=== PATIENT | female | born 1950 | race Caucasian/White ===

== ENCOUNTER 2021-11-20 12:58 | Emergency (ER) | payer MEDICARE ==
[~2021-11-20] VITALS: Ht 175.3 cm; Wt 136.6 kg
--- NOTE | 2021-11-20 13:18 | PHYS DOC ---
General Adult EDM: Chief Complaint: LOWER BACK PAIN OR INJURY HPI: HPI: Patient is a 70 year old female who presents with severe left-sided low back pain radiating into her gluteus for the last 4 days and now she is having the pain radiating down her leg. She states she took A Percocet this morning. She usually walks with a cane. Rates her pain a 10 out of 10 at this time. Denies loss of bowel bladder, numbness or tingling, weakness of the extremity, extremity swelling, fall, injury, your urinary symptoms, fever, headache, dizziness. Has a history of hypertension, diabetes, fibromyalgia, chronic headaches. Review of Systems: Review of Systems: Constitutional: Denies fever or chills. [] Eyes: Denies change in visual acuity. [] HENT: Denies nasal congestion or sore throat. [] Respiratory: Denies cough or shortness of breath. [] Cardiovascular: Denies chest pain or edema. [] GI: Denies abdominal pain, nausea, vomiting, bloody stools or diarrhea. [] : Denies dysuria. [] Musculoskeletal: + Left lower back pain or + left leg joint pain. [] Integument: Denies rash. [] Neurologic: Denies headache, focal weakness or sensory changes. [] Endocrine: Denies polyuria or polydipsia. [] Lymphatic: Denies swollen glands. [] Psychiatric: Denies depression or anxiety. [] Heart Score: C/O Chest Pain: No Current Medications: Current Medications Medications (Trade) Dose Ordered Sig/[facility] Start Time Stop Time Status Last Admin Dose Admin Fentanyl Citrate (Fentanyl 2ml Vial) 25 mcg 1X ONCE 11/20/21 13:15 11/20/21 13:16 UNV Lidocaine (Lidoderm) 1 patch 1X ONCE 11/20/21 13:15 11/20/21 13:16 UNV Methylprednisolone Sodium Succinate (SOLU-Medrol 125MG VIAL) 125 mg 1X ONCE 11/20/21 13:15 11/20/21 13:16 Orphenadrine Citrate (Norflex) 60 mg 1X ONCE 11/20/21 13:15 11/20/21 13:16 UNV Allergies: Allergies: Allergies Coded Allergies Type Severity Reaction Last Updated Verified No Known Drug Allergies 11/20/21 No Physical Exam: PE: Constitutional: Well developed, well nourished, no acute distress, non-toxic appearance. [] HENT: Normocephalic, atraumatic, bilateral external ears normal, oropharynx moist, no oral exudates, nose normal. [] Eyes: PERRLA, EOMI, conjunctiva normal, no discharge. [] Neck: Normal range of motion, no tenderness, supple, no stridor. [] Cardiovascular:Heart rate regular rhythm, no murmur [] Lungs & Thorax: Bilateral breath sounds clear to auscultation [] Abdomen: Bowel sounds normal, soft, no tenderness, no masses, no pulsatile masses. [] Skin: Warm, dry, no erythema, no rash. [] Back: Left lower back tenderness, no CVA tenderness. [] Extremities: No tenderness, no cyanosis, no clubbing, ROM intact, no edema. [] Neurologic: Alert and oriented X 3, normal motor function, normal sensory function, no focal deficits noted. [] Psychologic: Affect normal, judgement normal, mood normal. [] EKG: EKG: [] Radiology/Procedures: Radiology/Procedures: [] Impression: [facility] [address] [place] [address] IMAGING REPORT Signed PATIENT: YOBANY DILL ACCOUNT: [id number] : 1950 LOCATION: ER AGE: 70 SEX: F EXAM STATUS: PRE ER ORD. PHYSICIAN: ADAM CARIAS APRN REASON: severe back pain with sciatica PROCEDURE: CT LUMBAR SPINE WO CONTRAST CT LUMBAR SPINE WO History:Reason: severe back pain with sciatica / Spl. Instructions: / History: Technique: Noncontrast CT was performed of the lumbar spine. Multiplanar ayden nstructions were performed. Exposure: One or more of the following individualized dose reduction techniques were utilized for this examination: 1. Automated exposure control 2. Adjustment of the mA and/or kV according to patient size 3. Use of iterative reconstruction technique. Comparison: None Findings: Hepatic steatosis. Atheromatous plaque throughout the nonaneurysmal abdominal aorta and branch vessels. No acute fracture. Normal alignment. T12-L1: Posterior disc osteophyte complex. Vacuum disc phenomenon. No canal narrowing. Mild bilateral neuroforaminal narrowing. L1-L2: Posterior disc osteophyte complex. No canal narrowing. Mild facet arthropathy. Mild bilateral neuroforaminal narrowing. L2-L3: Small disc bulge. Moderate facet arthropathy. No canal narrowing. Mild right neuroforaminal narrowing. L3-L4: Posterior disc osteophyte complex. Vacuum disc phenomenon. Minimal canal narrowing. Subarticular recess narrowing. Moderate facet arthropathy. Moderate bilateral neuroforaminal narrowing. L4-L5: Left subarticular disc extrusion. Vacuum disc phenomenon. Moderate canal narrowing. Severe left subarticular recess narrowing. Probable displacement of the descending left L5 nerve root. Moderate left and mild right neuroforaminal narrowing. L5-S1: Small disc bulge. Moderate facet arthropathy. No canal narrowing. Mild left neuroforaminal narrowing. Impression: 1. Moderate lumbar spondylosis most prominent L4-5. 2. L4-5 disc bulge with left subarticular disc extrusion contributing to modera te canal narrowing and severe left subarticular recess narrowing with probable displacement and abutment of the descending left L5 nerve root. Correlate for radiculopathy. 3. Multilevel neuroforaminal narrowing most prominent left L4-5 and bilateral L3-L4. Electronically signed by: Kamron Ramos DO (11/20/2021 1:59 PM) [facility] DICTATED and SIGNED BY: KAMRON RAMOS DO DATE: 11/20/21 5255 Course & Med Decision Making: Course & Med Decision Making Pertinent Labs and Imaging studies reviewed. (See chart for details) See HPI. No saddle anesthesia. Speaks in full clear sentences. Alert and oriented x4. She can put weight on the left lower extremity which is painful to walk. There is some tenderness to the left lower back gluteal area. No extremity edema. No calf tenderness. No recent surgery. Afebrile. Skin pink warm and dry. Pedal pulse strong present. No focal weakness. Range of motion is limited due to pain. No CVA tenderness. Sensations intact. Patient is given Norflex, 50mcg fentanyl, lidocaine patch, Solu-Medrol IV. Patient was able to get up and ambulate to the bathroom using her cane with the nurse. Patient stated that it was easier to do so then it was previously. Patient is asking why the pain medication has not killed the pain totally. Patient is educated that the pain may not be taken away totally but that the hope is that it dulls it enough for her to get around. Patient will get a referral to Dr. Mak. She is given strict return precautions. [] Tomy Disclaimer: Tomy Disclaimer: This electronic medical record was generated, in whole or in part, using a voice recognition dictation system. Departure Departure Impression: Primary Impression: Low back pain Qualified Codes: M54.42 - Lumbago with sciatica, left side Disposition: HOME / SELF CARE / HOMELESS Condition: STABLE Referrals: PORFIRIO MAK MD Patient Instructions: Low Back Strain with [facility], Sciatica with [facility] Additional Instructions: Follow-up with your primary care doctor or as soon as possible. If you lose your bowel and bladder or have focal weakness cannot move the leg that is affected or the pain becomes so severe you cannot ambulate return to the emergency room. Take medication as prescribed. Remember some these medications will make you sleepy so you need to be very careful and slowly get up when standing and do not drive a vehicle while on these medications. Scripts Cyclobenzaprine Hcl (CYCLOBENZAPRINE HCL) 5 Mg Tablet 1 TAB PO TID PRN for MUSCLE PAIN, #30 TAB Prov: ADAM CARIAS APRN 11/20/21 Ibuprofen (IBUPROFEN) 600 Mg Tablet 600 MG PO PRN Q6HRS PRN for INFLAMMATION, #30 TAB DO NOT TAKE WITH OTHER NSAIDS Prov: ADAM CARIAS APRN 11/20/21 Hydrocodone Bit/Acetaminophen (HYDROCODONE-APAP 5-325 ) 1 Tab Tablet 1 TAB PO PRN Q6HRS PRN for PAIN, #15 TAB 0 Refills Prov: ADAM CARIAS [employer] 11/20/21 ADAM CARIAS APRN Nov 20, 2021 13:18
[2021-11-20] MEDS: ORPHENADRINE CITRATE 60 MG/2 ML VIAL. IV ONE (13:25)
[2021-11-20] MEDS: methylPREDNISolone SOD SUCC PF 125 MG/2 ML VIAL. IV ONE (13:25)
[2021-11-20] MEDS: LIDOCAINE (700MG/PATCH) PATCH. TD ONE (13:27)
[2021-11-20] MEDS: fentaNYL PF VIAL 100 MCG/2 ML VIAL IVP ONE ×2 (13:29→14:07)
--- NOTE | 2021-11-20 14:02 | RAD ---
CT LUMBAR SPINE WO History:Reason: severe back pain with sciatica / Spl. Instructions: / History: Technique: Noncontrast CT was performed of the lumbar spine. Multiplanar reconstructions were perform ed. Exposure: One or more of the following individualized dose reduction techniques were utilized for thi s examination: 1. Automated exposure control 2. Adjustment of the mA and/or kV according to patient size 3. Use of iterative reconstruction technique. Comparison: None Findings: Hepatic steatosis. Atheromatous plaque throughout the nonaneurysmal abdominal aorta and branch vessel s. No acute fracture. Normal alignment. T12-L1: Posterior disc osteophyte complex. Vacuum disc phenomenon. No canal narrowing. Mild bilatera l neuroforaminal narrowing. L1-L2: Posterior disc osteophyte complex. No canal narrowing. Mild facet arthropathy. Mild bilateral neuroforaminal narrowing. L2-L3: Small disc bulge. Moderate facet arthropathy. No canal narrowing. Mild right neuroforaminal n arrowing. L3-L4: Posterior disc osteophyte complex. Vacuum disc phenomenon. Minimal canal narrowing. Subarticu lar recess narrowing. Moderate facet arthropathy. Moderate bilateral neuroforaminal narrowing. L4-L5: Left subarticular disc extrusion. Vacuum disc phenomenon. Moderate canal narrowing. Severe le ft subarticular recess narrowing. Probable displacement of the descending left L5 nerve root. Moderat e left and mild right neuroforaminal narrowing. L5-S1: Small disc bulge. Moderate facet arthropathy. No canal narrowing. Mild left neuroforaminal na rrowing. Impression: 1. Moderate lumbar spondylosis most prominent L4-5. 2. L4-5 disc bulge with left subarticular disc extrusion contributing to moderate canal narrowing an d severe left subarticular recess narrowing with probable displacement and abutment of the descending left L5 nerve root. Correlate for radiculopathy. 3. Multilevel neuroforaminal narrowing most prominent left L4-5 and bilateral L3-L4. Electronically signed by: Kamron Ramos DO (11/20/2021 1:59 PM) [facility]
[2021-11-20 14:15] LABS: BILIRUBIN,URINE NEGATIVE (NEG); CLARITY,URINE CLEAR; COLOR,URINE YELLOW; NITRITE,URINE NEGATIVE (NEG); PH,URINE 5.5 (<5.0-8.0); PROTEIN,URINE 30 mg/dL (NEG-TRACE); UROBILINOGEN,URINE 0.2 mg/dL (0.2 mg/dL)
[2021-11-20 14:16] LABS: HYALINE CASTS, URINE MODERATE /HPF; RBC,URINE 0 /HPF (0-2)
[2021-11-20 14:17] LABS: BACTERIA,URINE FEW /HPF (0-FEW)
[2021-11-20] MEDS ORDERED: HYDR-2761 PO (14:41)
[2021-11-20] MEDS ORDERED: IBUP-1007 PO (14:41)
[2021-11-20] MEDS ORDERED: CYCL5TAB PO (14:41)
[2021-11-20 14:46] VITALS: BP 131/71
== END 2021-11-20 14:51 | disposition home or self-care (01) ==
LOC: ER 12:58
DX: M54.50 Low back pain, unspecified (principal); M79.605 Pain in left leg; M47.816 Spondylosis without myelopathy or radiculopathy, lumbar region
CPT/HCPCS: 72131; 81001; 87077; 87086; 87186; 96374; 96375; 99284; J2360; J2930; J3010

== ENCOUNTER → 2021-12-23 | Outpatient (CLI) | payer MEDICARE ==
[~2021-12-23] MED LIST: CRESTOR40 MG PO; CYCL5TAB PO; DULO60CA7 PO; HYDR-2761 PO; HYDR50TA9 PO; IBUP-1007 PO; LIDO700A21 TP; LOSA-73 PO; METF10007 PO
--- NOTE | 2021-12-23 15:52 | KCIC ---
EXAM: XR EYE_DETECT FOREIGN BODY 12/23/2021 2:10 PM CLINICAL INDICATION: Screening for MRI. History of metal wire lodged in the left eye. COMPARISON: None TECHNIQUE: 2 views of the orbits FINDINGS: No metallic foreign body in the orbits. IMPRESSION: No metallic foreign body in the orbits. Electronically signed by: Hermila Mitchell MD (12/23/2021 3:50 PM) [id number]
--- NOTE | 2021-12-24 09:28 | KCIC ---
EXAMINATION: Magnetic resonance imaging (MRI) of the lumbar spine without contrast 12/23/2021 2:10 PM HISTORY: Lumbar radiculopathy. Chronic low back pain in both buttocks. TECHNIQUE: Multiplanar multi-weighted MRI of the lumbar spine was performed without intravenous contr ast using the standard lumbar spine protocol. Contrast information: None administered. COMPARISON: CT lumbar spine 11/20/2021 FINDINGS: The alignment of the lumbar spine is normal. Vertebral bodies demonstrate normal signal intensity on all sequences. Moderate anterior marginal osteophytosis. There is moderate disc height loss at L3-L4 and mild disc height loss at L4-L5 with associated disc desiccation. Mild disc height loss at L1-L2. Disc desiccation. There are no compression fractures. The conus medullaris terminates at the level of L1. The distal spinal cord signal intensity is normal. Intervertebral disks have normal height an d signal intensity. There are no annular fissures identified. Limited views of the abdomen and pelvi s show no soft tissue abnormality. Tarlov cysts are identified at the S1-S2 vertebral level measuring up to 1.5 cm in craniocaudal dimension. The aorta is normal. T12-L1: There is a circumferential disc bulge. Mild facet arthropathy. Mild bilateral neuroforaminal stenosis. Mild spinal canal stenosis. L1-L2: There is a circumferential disc bulge asymmetric to the right with right far lateral disc prot rusion. Mild facet arthropathy. Mild bilateral neuroforaminal stenosis. Mild spinal canal stenosis. L2-L3: Mild disc bulge. Mild left and moderate right facet arthropathy. Mild bilateral neuroforaminal stenosis. Mild spinal canal stenosis. L3-L4: There is a posterior disc osteophyte complex. Mild to moderate facet arthropathy. Moderate zulay ateral neuroforaminal stenosis. Mild spinal canal stenosis, exacerbated by epidural lipomatosis. L4-L5: There is a circumferential disc bulge asymmetric to the left. There is a left subarticular rec ess disc extrusion with a cystic component which measures 1.1 x 0.9 x 1.2 cm. Moderate left and moder ate facet arthropathy. There is severe left lateral recess stenosis. Moderate spinal canal stenosis. Moderate bilateral neuroforaminal stenosis, left greater than right. L5-S1: Disc is normal in configuration. There is severe facet arthropathy. No significant neuroforami nal or spinal canal stenosis. IMPRESSION: Moderate degenerative changes of the lumbar spine as described in detail above. Findings are most sig nificant at L4-L5 with a left subarticular recess disc extrusion containing a cystic component measur ing 1.1 x 0.9 x 1.2 cm. Findings result in severe left lateral recess stenosis and moderate spinal ca nal stenosis. Electronically signed by: Annamarie Kramer MD (12/24/2021 9:26 AM) [facility]
== END ==
LOC: KCIC MRI 14:00
PROVIDERS: ATTEND Neurological Surgery
DX: M47.27 Other spondylosis with radiculopathy, lumbosacral region (principal); M47.25 Other spondylosis with radiculopathy, thoracolumbar region; M48.05 Spinal stenosis, thoracolumbar region; M51.15 Intervertebral disc disorders with radiculopathy, thoracolumbar region
CPT/HCPCS: 70030; 72148

== ENCOUNTER → 2021-12-27 | Outpatient (CLI) | payer MEDICARE ==
[~2021-12-27] MED LIST changes: +DEXAMETHASONE PRES.FREE 10 MG/ML VIAL. ONE; +IOHEXOL 180 MG/ML 10 ML VIAL. ONE
--- NOTE | 2021-12-27 12:58 | PDOC4 ---
Procedure Note: ICD 10 Code: ICD 10 Code: M51.16 M51.36 M48.06 Procedure Note: Patient was consented for lumbar epidural steroid injection with fluoroscopic guidance. Risks were discussed including but not limited to: Bleeding, infection, possibility of epidural hematoma and subsequent neurological compromise, dural puncture, headaches, spinal cord and/or nerve damage, side effects of steroid medication, and poor results regarding pain control. Patient understands and wished to proceed. Procedure is lumbar epidural steroid injection under local anesthetic using ster ile prep and drape at the L4-5 level using C-arm fluoroscopic guidance in both AP and lateral views medications injected is 20 mg dexamethasone +10mL preservative-free normal saline and 2 mL contrast- condition at discharge is stable patient tolerated procedure well had no complications. KARMA BOWERS MD Dec 27, 2021 12:58
--- NOTE | 2021-12-27 12:58 | PDOC1 ---
INITIAL PAIN CONSULT DATE OF SERVICE: DOS: DATE: 12/27/21 TIME: 12:52 CHIEF COMPLAINT: Chief Complaint: Low back and left lower extremity pain HISTORY OF PRESENT ILLNESS: 71-year-old female presents with history of pain low back left lower extremity for many years worse over the past 2 months or so without any specific injury or accident that she is aware for pain rating across the low back and the left lowe r extremity posterior gluteus posterior lateral thigh anterior thigh medial thigh medial lower leg lateral calf and medial calf with tingling in the leg as well patient reports again no specific injury or accident but is getting worse with time and walking and standing worse with repetitive motions with left lower extremity such as walking standing changing positions getting up from a seated position patient reports is better with sitting or laying down but does awaken from sleep about once a night when she lays on her left side patient reports it does affect her bowel bladder control but no incontinence just increased frequency patient reports it does affect her ability to walk using a cane has it with her today and holding in her right hand. Patient describes pain as stabbing in the back tingling in the leg with numbness and radiating pain in the lower extremity on the left side but not the right. Patient has had physical therapy in the past and is doing his physical therapy exercises from that as well which is helpful but only temporarily patient reports he is taking hydrocodone as well as ibuprofen and using lidocaine patches all of which do decrease the pain and make things more bearable but not decrease the pain completely. Patient did have an MRI scan of the lumbar spine which we reviewed with her today showing cervical disc bulge at L4-5 with a left subarticular recess disc extrusion containing cystic component with severe left lateral recess stenosis and moderate spinal canal stenosis. Patient rates her disability rating 0-10 10 being worst is 8 responsibilities 9 with recreation social activity 10 with occupation 4 with self-care. Patient reports no loss of motor function but significant fatigability of the left lower extremity with ambulation. PAST MEDICAL HISTORY: PMH: Hypertension, shortness of breath, arthritis, depression PREVIOUS SURGERIES: Past Surgical Hx: Ankle fracture ORIF, x2, right rotator cuff repair, left knee scope, skin cancer excisions CURRENT MEDICATIONS: Current Meds: Active Scripts Medications Dose Route/Sig Max Daily Dose Days Date Category Dose Instructions Cyclobenzaprine Hcl 5 Mg Tablet 1 Tab PO TID PRN 11/20/21 Rx Ibuprofen 600 Mg Tablet 600 Mg PO PRN Q6HRS PRN 11/20/21 Rx DO NOT TAKE WITH OTHER NSAIDS Hydrocodone-Apap 5-325 (Hydrocodone Bit/Acetaminophen) 1 Tab Tablet 1 Tab PO PRN Q6HRS PRN 11/20/21 Rx ALLERGIES; Allergies: Coded Allergies: No Known Drug Allergies (Unverified , 11/20/21) FAMILY HISTORY: Family Hx: No major medical problems or conditions that she is aware of SOCIAL HISTORY: Social Hx: Patient is under alcohol does not smoke not use any illegal illicit recreational drugs is single lives locally in [facility] REVIEW OF SYSTEMS: ROS: Positive for those items mentioned in history of present illness, all systems are reviewed, otherwise negative ,and are complete full and well-documented on patient's chart. PHYSICAL EXAM: VS: Blood pressure is 168/105 pulse is 96 respirations 20 temperature is 98.2 F height is 5 foot 9 inches weight is 300 pounds stated. PE: PHYSICAL EXAMINATION: GENERAL: The patient is awake, alert, oriented, appropriate, very pleasant in demeanor HEENT: Shows normocephalic, atraumatic. Extraocular movements are intact and symmetrical. Oral cavity: Mucous membranes moist and pink. Dentition is intact. NECK: Shows anterior throat supple without palpable lymphadenopathy noted. Swallow reflex symmetrical. CHEST: Shows normal on inspection. Breath sounds are clear bilaterally, no rales rhonchi or wheezes auscultated. HEART: Shows S1, S2 clear. No murmurs auscultated. ABDOMEN: Soft, nontender, nondistended. No palpable organomegaly is noted. BACK: Shows spine grossly in the midline. Normal-appearing cervical lordotic curvature. There is slightly increased thoracic kyphosis, some mild flattening of the lumbar lordotic curvature. Lumbar paraspinous muscles show symmetrical on inspection, on palpation shows some moderate tenderness diffusely throughout the upper, middle and lower distribution of the paraspinous muscles bilaterally and also into the lower thoracic paraspinous musculature, firm and tender, but without specific trigger points, without radiation of pain. The patient has good rotational motion of the lumbar spine, both laterally as well as extension and flexion without significant difficulty. No tenderness over the spinous processes, sacrum or sacroiliac regions. EXTREMITIES: Lower extremities show deep tendon reflexes 1+ in the patellar and tendo calcaneus tendons. Motor exam is 5 on a scale of 5 with right dorsiflexion, extension, quadriceps and hamstring flexion and 4/5 on the left. Peripheral pulses are 1+ posterior tibial. No peripheral edema is noted bilaterally. Lower extremities are warm and dry to touch, equal in color and appearance. Straight leg raise is noted to be negative bilaterally. SKIN: Shows warm and dry, good turgor. No edema. No sores, rashes or bruising throughout. IMPRESSION: Impression: 71-year-old female with approximate 2-month history increasing pain low back left lower extremity radicular fashion. MRI scan lumbar spine as noted. Arthritis Hypertension Hearing loss Plan: Options were discussed with patient including serve medical management physical therapies interventional techniques. Patient like general techniques. We discussed a lumbar epidural steroid injection using descriptions as well as anatomical models to describe the procedure. Risks were discussed including but not limited to: Bleeding, infection, possibility of epidural hematoma and subsequent neurological compromise, dural puncture, headaches, spinal cord and/or nerve damage, side effects of steroid medication, and poor results regarding pain control. Patient understands and wished to proceed. Patient will return to the clinic in approximately 2 weeks for follow-up, was counseled as return appointment, activity level, and side effect. Procedure is lumbar epidural steroid injection under local anesthetic using sterile prep and drape at the L4-5 level using C-arm fluoroscopic guidance in both AP and lateral views medications injected is 20 mg dexamethasone +10mL preservative-free normal saline and 2 mL contrast- condition at discharge is stable patient tolerated procedure well had no complications. KARMA BOWERS MD Dec 27, 2021 12:58
== END | disposition home or self-care (01) ==
LOC: PNCL 10:46
PROVIDERS: ATTEND Anesthesiology
DX: M51.16 Intervertebral disc disorders with radiculopathy, lumbar region (principal); M48.061 Spinal stenosis, lumbar region without neurogenic claudication; I10 Essential (primary) hypertension; M19.90 Unspecified osteoarthritis, unspecified site; F32.9 Major depressive disorder, single episode, unspecified; F17.210 Nicotine dependence, cigarettes, uncomplicated; Z79.82 Long term (current) use of aspirin; Z79.899 Other long term (current) drug therapy; Z98.890 Other specified postprocedural states
CPT/HCPCS: 62323; J1100; Q9965

== ENCOUNTER → 2022-01-10 | Outpatient (CLI) | payer MEDICARE ==
[~2022-01-10] MED LIST changes: -DEXAMETHASONE PRES.FREE 10 MG/ML VIAL. ONE; -IOHEXOL 180 MG/ML 10 ML VIAL. ONE
--- NOTE | 2022-01-10 11:44 | PDOC ---
Progress Note - Pain Clinic Date of Service: DOS: DATE: 01/10/22 TIME: 11:39 Diagnosis: Dx: Lumbar radiculopathy with lumbar degenerative disease and lumbar spinal stenosis History or Present Illness: HPI: 71-year-old female returns for follow-up status post lumbar epidural steroid injection x1 with about 65% improvement in the low back and left lower extremity patient reports she was increasing her activity with distance walking doing greater activities with home activities travel with greater ease and comfort sleeping better at night the pain began to return and then after the past few days and she has been approximately 3 weeks since her injection and reports that her ankle feels much better but the pain in the back and the leg is returning in the posterior gluteus posterior lateral thigh anterior thigh medial thigh medial lower leg patient rates as a 10 on scale 10 is worse over the past week 8 on average 5 at its least, and is a 5 today patient reports aching and shooting can be constant severe with weightbearing initially was doing much better as noted with activity sleeping better at night now is waking her from sleep about every 3-4 hours especially if she lays on her left side. Patient reports no bowel or bladder incontinence no loss of motor function she also taking ibuprofen which does help significantly about 40% with the pain as well. Patient was able to decrease the amount of ibuprofen significantly for the first few weeks following the injection but now the pain is returning as noted. Patient continues doing s tretching and strength exercises and was walking daily until the last few days when the pain began to become more limiting. Patient reports no loss of motor function but significant fatigability with left lower extremity with ambulation and standing. Patient reports no bowel or bladder incontinence. Physical Exam: VS: Blood pressure is 139/81 pulse 96 respirations are 18 temperature is 98.2 F weight is 300 pounds. PE: PHYSICAL EXAMINATION: GENERAL: The patient is awake, alert, oriented, appropriate, very pleasant in demeanor HEENT: Shows normocephalic, atraumatic. Extraocular movements are intact and symmetrical. Oral cavity: Mucous membranes moist and pink. Dentition is intact. NECK: Shows anterior throat supple without palpable lymphadenopathy noted. Swallow reflex symmetrical. CHEST: Shows normal on inspection. Breath sounds are clear bilaterally, distant but no rales or rhonchi auscultated. HEART: Shows S1, S2 clear. No murmurs auscultated. ABDOMEN: Soft, nontender, nondistended, obese. No palpable organomegaly is noted. BACK: Shows spine grossly in the midline. Normal-appearing cervical lordotic curvature. There is moderately increased thoracic kyphosis, some flattening of the lumbar lordotic curvature. Lumbar paraspinous muscles show symmetrical on inspection, on palpation shows some moderate tenderness diffusely throughout the upper, middle and lower distribution of the paraspinous muscles, but without specific trigger points, without radiation of pain. The patient has good rotational motion of the lumbar spine, both laterally as well as extension and flexion without significant difficulty. No tenderness over the spinous processes, sacrum or sacroiliac regions. EXTREMITIES: Lower extremities show deep tendon reflexes 1+ in the patellar and tendo calcaneus tendons. Motor exam is 5 on a scale of 5 with right dorsiflexion, extension, quadriceps and hamstring flexion and 4/5 on the left. Peripheral pulses are 1 to posterior tibial. No peripheral edema is noted bilaterally. Lower extremities are warm and dry to touch, equal in color and appearance. Straight leg raise noted to be positive on the left at approximately 40 degrees, right side is negative. SKIN: Shows warm and dry, good turgor. No edema. No sores, rashes or bruising throughout. Procedure: Procedure: Options were discussed with the patient. Patient's old chart was reviewed as was her current medication regimen updated current review of systems updated today as well. We will preauthorize patient for second lumbar epidural steroid injection as she did very well after the first injection with the pain returning now in a L4-5 dermatomal distribution in the left lower extremity. Once approve d, patient will return for translaminar approach L4-5 level lumbar epidural steroid injection with fluoroscopic guidance. In the meantime, patient will continue with daily stretching strengthening exercise as well as walking daily as tolerated and oral analgesics as currently. Medication Injected: Med Injected: None Condition at Discharge: Condition at Discharge: Condition at discharge is stable. KARMA BOWERS MD January 10, 2022 11:44
== END | disposition home or self-care (01) ==
LOC: PNCL 10:45
PROVIDERS: ATTEND Anesthesiology
DX: M51.16 Intervertebral disc disorders with radiculopathy, lumbar region (principal); M48.061 Spinal stenosis, lumbar region without neurogenic claudication; F17.210 Nicotine dependence, cigarettes, uncomplicated; Z79.899 Other long term (current) drug therapy
CPT/HCPCS: 99212; G0463

== ENCOUNTER → 2022-01-26 | Outpatient (CLI) | payer MEDICARE ==
[~2022-01-26] MED LIST changes: +DEXAMETHASONE PRES.FREE 10 MG/ML VIAL. ONE; +IOHEXOL 180 MG/ML 10 ML VIAL. ONE
--- NOTE | 2022-01-26 12:19 | PDOC ---
Progress Note - Pain Clinic Date of Service: DOS: DATE: 01/26/22 TIME: 12:16 Diagnosis: Dx: Lumbar radiculopathy with lumbar degenerative disease lumbar spinal stenosis History or Present Illness: HPI: 71-year-old female returns for follow-up status post lumbar epidural steroid injection x1. Patient reports about 65% improvement in the low back and left lower extremity but the pain returning now but it has been 1 month since her last injection into the posterior gluteus lateral thigh anterior thigh medial thigh medial lower leg and into the posterior calf on the left side patient reports is worse with walking standing changing positions better with sitting or laying down describes as aching and shooting and tingling in the left leg patient describes as a 9 on scale 10 is worse over the past week 7 on average 3 at its least and is a 3 today. Patient reports initially do much better distance walking doing household activities work activities travel with greater ease and comfort. Patient reports he is sleeping better. Generally sleeps well at night does not awaken from sleep currently. Patient reports no bowel or bladder incontinence. Physical Exam: VS: Blood pressure is 161/77 pulse 91 respirations 18 temperature 98.3 F height is 5 feet 9 inches weight is 300 pounds PE: PHYSICAL EXAMINATION: GENERAL: The patient is awake, alert, oriented, appropriate, very pleasant in demeanor HEENT: Shows normocephalic, atraumatic. Extraocular movements are intact and symmetrical. Oral cavity: Mucous membranes moist and pink. Dentition is intact. NECK: Shows anterior throat supple without palpable lymphadenopathy noted. Swallow reflex symmetrical. CHEST: Shows normal on inspection. Breath sounds are clear bilaterally, distant but no rales or rhonchi. HEART: Shows S1, S2 clear. No murmurs auscultated. ABDOMEN: Soft, nontender, nondistended. No palpable organomegaly is noted. BACK: Shows spine grossly in the midline. Normal-appearing cervical lordotic curvature. There is moderately increased thoracic kyphosis, some flattening of the lumbar lordotic curvature. Lumbar paraspinous muscles show symmetrical on inspection, on palpation shows some moderate tenderness diffusely throughout the upper, middle and lower distribution of the paraspinous muscles, but without specific trigger points, without radiation of pain. The patient has good rotational motion of the lumbar spine, both laterally as well as extension and flexion without significant difficulty. No tenderness over the spinous processes, sacrum or sacroiliac regions. EXTREMITIES: Lower extremities show deep tendon reflexes 1+ in the patellar and tendo calcaneus tendons. Motor exam is 5 on a scale of 5 with right dorsiflexion, extension, quadriceps and hamstring flexion and 4/5 on the left. Peripheral pulses are 1+ posterior tibial. No peripheral edema is noted bilaterally. Lower extremities are warm and dry to touch, equal in color and appearance. SKIN: Shows warm and dry, good turgor. No edema. No sores, rashes or bruising throughout. Procedure: Procedure: Options discussed with the patient. Patient's old chart was reviewed as her current medication regimen updated current review of systems updated today as well. We will proceed with a lumbar epidural steroid injection today with fluoroscopic guidance. Risks were discussed including but not limited to: Blee ding, infection, possibility of epidural hematoma and subsequent neurological compromise, dural puncture, headaches, spinal cord and/or nerve damage, side effects of steroid medication, and poor results regarding pain control. Patient understands and wished to proceed. Patient will return to the clinic in approximately 2 weeks for follow-up, was counseled as to return appointment, activity level, and side effect to be aware of. Medication Injected: Med Injected: Procedure is lumbar epidural steroid injection under local anesthetic using sterile prep and drape at the L4-5 level using C-arm fluoroscopic guidance in both AP and lateral views medications injected is 20 mg dexamethasone +10mL preservative-free normal saline and 2 mL contrast- condition at discharge is stable patient tolerated procedure well had no complications. Condition at Discharge: Condition at Discharge: Condition at discharge stable, patient tolerated the procedure well and had no complications. KARMA BOWERS MD January 26, 2022 12:19
--- NOTE | 2022-01-26 12:20 | PDOC4 ---
Procedure Note: ICD 10 Code: ICD 10 Code: M54.16 M51.36 M48.06 Procedure Note: Patient is consented for lumbar epidural steroid injection with fluoroscopic guidance. Risks were discussed including but not limited to: Bleeding, infection, possibility of epidural hematoma and subsequent neurological compromise, dural puncture, headaches, spinal cord and/or nerve damage, side effects of steroid medication, and poor results regarding pain control. Patient understands and wished to proceed. Procedure is lumbar epidural steroid injection under local anesthetic using sterile prep and drape at the L4-5 level level using C-arm fluoroscopic guidance in both AP and lateral views medications injected is 20 mg dexamethasone +10mL preservative-free normal saline and 2 mL contrast- condition at discharge is stable patient tolerated procedure well had no complications. KARMA BOWERS MD January 26, 2022 12:20
== END | disposition home or self-care (01) ==
LOC: PNCL 10:59
PROVIDERS: ATTEND Anesthesiology
DX: M51.16 Intervertebral disc disorders with radiculopathy, lumbar region (principal); M48.061 Spinal stenosis, lumbar region without neurogenic claudication; F17.210 Nicotine dependence, cigarettes, uncomplicated; Z79.84 Long term (current) use of oral hypoglycemic drugs; Z79.899 Other long term (current) drug therapy
CPT/HCPCS: 62323; J1100; Q9965